=== PATIENT | female | born 1940 | race Caucasian/White ===

== ENCOUNTER → 2019-09-04 | Outpatient (CLI) | payer OTHER | LOC: RAD 09:16 | DX: I51.7 Cardiomegaly (principal) ==

== ENCOUNTER → 2020-02-20 | Outpatient (CLI) | payer OTHER | LOC: LAB 10:10 | PROVIDERS: ATTEND Internal Medicine | DX: Z01.818 Encounter for other preprocedural examination (principal); Z11.59 Encounter for screening for other viral diseases ==

== ENCOUNTER → 2020-02-21 | Outpatient (CLI) | payer OTHER ==
--- NOTE | 2020-03-21 17:38 | MCT ---
[facility] [place] [address] METHACHOLINE CHALLENGE TEST Name: JAVY GARNER Room #: REG REY Jarvis#: [id number] Admission: 02/21/20 Attend Phys: John Morales MD Discharge: Date of : 44 Report #: [id number] THIS REPORT FOR: //name// COPIES FOR: AGE: 79 SEX/RACE: F/C Height: 59 in Exam Date: 02/21/20 Weight: 160 lbs BTPS: X >> PRE BRONCHODILATOR: PREDICTED BEST %PRED FORCED VITAL CAPACITY (FRC) 2.09 L LPM % FORCED EXP VOL/SEC (FEV1) 1.39 L FEV/FVC % MAX MID-EXP FLOW (FEF 25-75) 1.78 L/SEC L/SEC % PEAK EXP FLOW RATE (FEF MAX) 4.68 L/MIN L/MIN MED-VC RATIO (FEF 50/FEF 50) .09 Baseline: Phenol Saline Level 1: 0.025 mg/ml BEST %PRED %CHANGE BEST %PRED %CHANGE FVC 2.06 L 99 % % FVC 1.97 L 95 % -4 % FEV1 1.42 L 102 % % FEV1 1.28 L 92 % -9 % Level 2: 0.25 mg/ml Level 3: 2.5 mg/ml BEST %PRED %CHANGE BEST %PRED %CHANGE FVC 1.88 L 90 % -8 % FVC 1.86 L 89 % -9 % FEV1 1.22 L 87 % 14 % FEV1 1.16 L 83 % -18 % . Level 4: 10 mg/ml Level 5: 25 mg/ml BEST %PRED %CHANGE BEST %PRED %CHANGE FVC 1.68 L 80 % -19 % FVC L % % FEV1 1.02 L 73 % -28 % FEV1 L % % Post Bronchodilator: 1st Treatment Post Bronchodilator: 2nd Treatment BEST %PRED %CHANGE BEST %PRED %CHANGE FVC 1.95 L 93 % -5 % FVC L % % FEV1 1.30 L 93 % -9 % FEV1 L % % Post Bronchodilator: 3rd Treatment BEST %PRED %CHANGE [facility] [address] [place] [address] METHACHOLINE CHALLENGE TEST Name: JAVY GARNER Room #: REG [facility].#: [id number] Admission: 02/21/20 Attend Phys: John Morales MD Discharge: Date of : 44 Report #: [id number] FVC L % % FEV1 L % % >> INTERPRETATION: CC: Diana Morales DATE OF SERVICE: 02/21/2020 METHACHOLINE CHALLENGE TEST SUMMARY: Routine measurements for the bronchodilator challenge were administered. Baseline FVC is 2.06 liters, FEV1 baseline 1.42 liters. With increasing doses of methacholine, there was a significant decline in her FEV1 and FVC. FVC decreased to 1.68 liters (19% change). FEV1 decreased to 1.02 liters (28% change). There was a significant response to bronchodilator therapy with a significant response and return to proximal normal therapy. IMPRESSION: Positive methacholine challenge test. <ELECTRONICALLY SIGNED> By: Kyler Barba MD 03/21/20 1738 Kyler Barba MD /nt
== END ==
LOC: PUL 10:40
PROVIDERS: ATTEND Internal Medicine
DX: R06.02 Shortness of breath (principal); Z88.8 Allergy status to other drugs, medicaments and biological substances

== ENCOUNTER → 2020-03-12 | Outpatient (CLI) | payer OTHER | LOC: CAT 09:18 | PROVIDERS: ATTEND Internal Medicine | DX: J84.10 Pulmonary fibrosis, unspecified (principal); I25.10 Atherosclerotic heart disease of native coronary artery without angina pectoris; J98.4 Other disorders of lung; R91.1 Solitary pulmonary nodule; E04.9 Nontoxic goiter, unspecified; M25.78 Osteophyte, vertebrae; Z95.4 Presence of other heart-valve replacement; Z90.49 Acquired absence of other specified parts of digestive tract; Z87.81 Personal history of (healed) traumatic fracture ==

== ENCOUNTER → 2020-04-02 | Outpatient (CLI) | payer OTHER | LOC: ULTRA 14:42 | PROVIDERS: ATTEND Internal Medicine | DX: E04.2 Nontoxic multinodular goiter (principal) ==

== ENCOUNTER → 2020-04-10 | Outpatient (CLI) | payer OTHER | END | disposition home or self-care (01) | LOC: ULTRA 09:09 | PROVIDERS: ATTEND Radiology Diagnostic Radiology | DX: E04.1 Nontoxic single thyroid nodule (principal) ==

== ENCOUNTER → 2020-06-29 | Outpatient (CLI) | payer OTHER | LOC: RAD 13:30 | PROVIDERS: ATTEND Internal Medicine | DX: J43.9 Emphysema, unspecified (principal); M47.9 Spondylosis, unspecified; R05 Cough ==

== ENCOUNTER 2021-01-26 08:48 | Inpatient (IN) | payer OTHER ==
[~2021-01-26] VITALS: Ht 144.8 cm; Wt 76.7 kg
[2021-01-26 08:50] VITALS: BP 193/74
[2021-01-26 09:18] LABS: ABSOLUTE NEUTROPHILS 14.1 thou/uL (1.4-8.2); BASOPHILS 0.3 % (0.0-2.0); HEMATOCRIT 44.3 % (37.0-47.0); HEMOGLOBIN 15.1 gm/dL (12.0-15.0); LYMPHOCYTES 5.1 % (24.0-44.0); MCH 32.6 pg (26.0-34.0); MCHC 34.1 g/dL (28.0-37.0); MCV 95.5 fL (80.0-100.0); MONOCYTES 4.5 % (1.0-8.0); PLATELET COUNT 167 thou/uL (150-400); POLYS 90.1 % (36.0-66.0); RBC 4.64 mil/uL (4.20-5.00); RDW 13.2 % (10.5-14.5); WBC 15.7 thou/uL (4.0-11.0)
[2021-01-26 09:28] LABS: CALCIUM 8.7 mg/dL (8.5-10.1); CREATININE 1.3 mg/dL (0.6-1.0); POTASSIUM 3.7 mmol/L (3.5-5.1)
[2021-01-26 09:34] LABS: ALBUMIN 3.5 g/dL (3.4-5.0); TOTAL BILIRUBIN 0.9 mg/dL (0.2-1.0); TOTAL PROTEIN 7.7 g/dL (6.4-8.2)
[2021-01-26 15:36] VITALS: BP 145/53
[2021-01-26 15:52] VITALS: BP 151/59
[2021-01-26 16:05] VITALS: BP 161/66
[2021-01-26] MEDS ORDERED: EZETIMIBE10 MG PO (16:14)
[2021-01-26] MEDS ORDERED: METOPROLOL SUCC50 MG PO (16:14)
[2021-01-26] MEDS ORDERED: METFORMIN HCL500 M1 PO (16:15)
[2021-01-26] MEDS ORDERED: FUROSEMIDE 40 M40 M1 PO (16:16)
[2021-01-26] MEDS ORDERED: VERAPAMIL ER240 M1 PO (16:16)
[2021-01-26] MEDS ORDERED: KLOR-CON M2020 MEQ PO (16:17)
[2021-01-26] MEDS ORDERED: CLINDAMYCIN HC300 MG PO (16:19)
[2021-01-26] MEDS ORDERED: FISH OIL 1,0001 EAC9 PO (16:23)
[2021-01-26] MEDS ORDERED: VITAMIN E1000 UNIT PO (16:24)
[2021-01-26] MEDS ORDERED: CITRACAL-D3 MA1 EACH PO (16:25)
[2021-01-26] MEDS ORDERED: ASA81BEC PO (16:25)
[2021-01-26] MEDS ORDERED: OMEPRAZOLE 20 M20 M1 PO (16:26)
[2021-01-26] MEDS ORDERED: BREO ELLIPTA 11 EACH INH ×2 (16:27→16:28)
[2021-01-26] MEDS ORDERED: VENTOLIN HFA INH8 GM INH (16:29)
[2021-01-26] MEDS ORDERED: TRELEGY ELLIPT1 EAC1 INH (16:33)
[2021-01-26 19:24] VITALS: BP 167/81
[2021-01-27 04:37] LABS: ABSOLUTE NEUTROPHILS 12.6 thou/uL (1.4-8.2); BASOPHILS 0.2 % (0.0-2.0); EOSINOPHILS 0.3 % (0.0-3.0); HEMATOCRIT 36.3 % (37.0-47.0); MCH 31.9 pg (26.0-34.0); MCV 96.6 fL (80.0-100.0); MONOCYTES 8.1 % (1.0-8.0); PLATELET COUNT 121 thou/uL (150-400); POLYS 83.4 % (36.0-66.0); RBC 3.76 mil/uL (4.20-5.00); RDW 13.5 % (10.5-14.5); WBC 15.1 thou/uL (4.0-11.0)
[2021-01-27 04:38] VITALS: BP 146/67
[2021-01-27 04:43] LABS: ALBUMIN 2.2 g/dL (3.4-5.0); CALCIUM 7.2 mg/dL (8.5-10.1); CREATININE 0.9 mg/dL (0.6-1.0); MAGNESIUM 1.9 mg/dL (1.8-2.4); POTASSIUM 3.3 mmol/L (3.5-5.1); TOTAL BILIRUBIN 0.7 mg/dL (0.2-1.0); TOTAL PROTEIN 5.4 g/dL (6.4-8.2)
[2021-01-27 07:36] VITALS: BP 144/60
[2021-01-27 11:22] VITALS: BP 123/45
--- NOTE | 2021-01-27 14:21 | NUR ---
PT DAUGHTER WILL BRING UP HOME INHALATION MEDICATION THIS EVENING.
--- NOTE | 2021-01-27 15:06 | NUR ---
PT DAUGHTER LEFT FOR AFTERNOON, THIS RN ENCOURAGED PT TO CALL FOR ASSIST NEEDED FOR REST ROOM, REPOSITIONING, NEEDS. PT VERBALIZED UNDERSTANDING.
[2021-01-27 15:15] VITALS: BP 144/62
--- NOTE | 2021-01-27 15:49 | NUR ---
Case reveiwed and discussed with the care team. Cm role introduced to the pt and son at bedside. The pt is a&ox4 and lives indep with her spouse. She does not use any dme and drives. Her pcp is Dr. Diana Corado and she has active ins on file for f/u care. The pt is being treated for colitis. No dc planning needs are indicated at this time. Will remain available should dc needs arise.
[2021-01-27] MEDS ORDERED: OTHER PO (16:35)
[2021-01-27 19:28] VITALS: BP 168/84
[2021-01-28 07:51] LABS: CALCIUM 7.2 mg/dL (8.5-10.1); CREATININE 0.8 mg/dL (0.6-1.0); MAGNESIUM 1.9 mg/dL (1.8-2.4); POTASSIUM 3.1 mmol/L (3.5-5.1)
[2021-01-28 07:52] LABS: HEMATOCRIT 32.9 % (37.0-47.0); HEMOGLOBIN 11.2 gm/dL (12.0-15.0); MCH 32.6 pg (26.0-34.0); RBC 3.42 mil/uL (4.20-5.00); RDW 13.3 % (10.5-14.5); WBC 13.5 thou/uL (4.0-11.0)
[2021-01-28 11:04] VITALS: BP 128/65
[2021-01-28 13:36] LABS: URINE BILIRUBIN NEGATIVE (Negative); URINE BLOOD NEGATIVE (Negative); URINE CLARITY CLEAR; URINE COLOR YELLOW; URINE GLUCOSE-RANDOM* 1+ (Negative); URINE KETONES NEGATIVE (Negative); URINE LEUKOCYTES-REFLEX NEGATIVE (Negative); URINE NITRITE-REFLEX NEGATIVE (Negative); URINE PROTEIN (DIPSTICK) NEGATIVE (Negative); URINE SPECIFIC GRAVITY <= 1.005 (1.005-1.035); URINE UROBILINOGEN 0.2 E.U./dl (0.2-1.0)
[2021-01-28 15:10] VITALS: BP 151/70
--- NOTE | 2021-01-28 16:08 | NUR ---
SW reviewed chart and spoke with nursing and attending physician. Pt is on 1L of O2 and on IV abx. Pt being tested for c.diff. Plan is for pt to discharge home when medically stable. KASSANDRA is following to assist as needed with discharge planning.
--- NOTE | 2021-01-28 16:37 | NUR ---
RN ASSUMED PT'S CARE AT 0700AM, PT IS A&OX4, PT IS ON O2 1L/MIN/NC, PT'S VS ARE STABLE, PT IS CONTINUING IV ABX, RN HAS REPORTED TO HOSPITAL DR AND GI DR ABOUT PT STILL HAS SMALL BLOOD IN STOOL, PT GETS UP TO BATH ROOM BY HERSELF, PT DENIES PAIN AND SOB BY THIS TIME.
[2021-01-28 19:51] VITALS: BP 134/61
--- NOTE | 2021-01-29 03:29 | NUR ---
Patient making slow progress towards outcome goals. Vital signs and rhythm stable. Up adlib without difficulty. No bowel movement. Noactive signs of bleeding. Denies pain.
[2021-01-29 04:02] VITALS: BP 173/77
[2021-01-29 06:18] LABS: HEMATOCRIT 33.3 % (37.0-47.0); HEMOGLOBIN 11.3 gm/dL (12.0-15.0); MCH 32.3 pg (26.0-34.0); MCHC 34.1 g/dL (28.0-37.0); MCV 94.9 fL (80.0-100.0); RBC 3.51 mil/uL (4.20-5.00); RDW 13.4 % (10.5-14.5); WBC 10.3 thou/uL (4.0-11.0)
[2021-01-29 06:34] LABS: CALCIUM 7.5 mg/dL (8.5-10.1); CREATININE 0.7 mg/dL (0.6-1.0); MAGNESIUM 1.8 mg/dL (1.8-2.4); POTASSIUM 3.6 mmol/L (3.5-5.1)
[2021-01-29 07:18] VITALS: BP 170/80
--- NOTE | 2021-01-29 09:29 | NUR ---
ORDERS RECEIVED AND CHART REVIEWED. PATIENT AND FAMILY MEMBERS IN ROOM, HAS BEEN UP AD ELIO AND REPORTS SELF CARE ABILITIES ARE INDEPENDENT. DECLINES NEED FOR FORMAL EVAL, HAS SHOWER CHAIR/GB AND WALK IN SHOWER AT HOME. STAIRS TO BASEMENT FOR LAUNDRY AND FAMILY MEMBER REPORTS ASSIST NEEDED. NO ACUTE NEEDS APPARENT, WILL SIGN OFF. PLEASE RECONSULT IF FUNCTIONAL STATUS CHANGES.
[2021-01-29 11:05] VITALS: BP 139/73
--- NOTE | 2021-01-29 11:56 | NUR ---
ORDERS FOR EVAL AND TREAT. Pt IS UP AD ELIO. SPOKE WITH Pt WHO STATES SHE IS HAVING NO DIFFICULTY WITH MOBILITY AND DOES NOT FEEL WEAK OR OFF-BALANCE. Pt IS GETTING UP ON HER OWN IN THE ROOM AND DECLINING A FORMAL P.T. EVAL BUT APPEARS SAFE FOR HOME WHEN MEDICALLY CLEAR
[2021-01-29 12:57] LABS: ABSOLUTE RETIC COUNT 0.0721 10^6/uL; OBSERVED RETIC COUNT 1.93 % (0.6-2.6)
[2021-01-29 13:11] LABS: % SATURATION 13 % (20-39); IRON 26 ug/dL (50-170); TIBC 204 ug/dL (250-450)
--- NOTE | 2021-01-29 16:17 | NUR ---
SW reviewed chart and spoke with nursing and attending physician. Pt is on 1L of O2 and IV abx. No weekend discharge planned. Therapy ordered to evaluate pt for discharge needs. SW is following to assist as needed with discharge planning.
[2021-01-29 16:22] VITALS: BP 147/73
--- NOTE | 2021-01-29 18:28 | NUR ---
RN ASSUMED PT'S CARE AT 0700AM, PT IS A&OX4, PT IS CONTINUING IV ABX , PT'S VS ARE STABLE, PT DENIES PAIN AND N/V AT DAY SHIFT.PT CAN GETS UP TO BATH ROOM AND CHAIR BY HERSELF.
[2021-01-29 19:56] VITALS: BP 124/59
[2021-01-30] VITALS (7 sets, daily range): BP systolic 133–175; BP diastolic 61–88
--- NOTE | 2021-01-30 03:40 | NUR ---
PROGRESS PT A/O X4, LUNGS CLEAR. ABDOMEN SOFT AND NON TENDER TO PALPATION. BS ACTIVE PT REPORTS STOOL EARLIER IN DAY. ACCUCHECKS CONTINUE ACHS. IV SALINE LOCKED, INTERMITTENT ANTIBIOTICS ADMINISTERED ORDERED. PT TOLERATING SOFT FIBER RESTRICTED DIET AND PO FLUIDS WITHOUT NAUSEA OR PAIN. VOIDING QS. UP AD ELIO GAIT STEADY. DENIES PAIN PT REPORTED SHE FEELS A LOT BETTER AND WISHES TO DISCHARGE HOME THIS AM.
[2021-01-30 04:59] LABS: BASOPHILS 0.2 % (0.0-2.0); EOSINOPHILS 1.5 % (0.0-3.0); HEMATOCRIT 35.9 % (37.0-47.0); HEMOGLOBIN 12.2 gm/dL (12.0-15.0); LYMPHOCYTES 12.8 % (24.0-44.0); MCH 32.5 pg (26.0-34.0); MCV 95.6 fL (80.0-100.0); MONOCYTES 11.2 % (1.0-8.0); PLATELET COUNT 150 thou/uL (150-400); POLYS 74.3 % (36.0-66.0); RBC 3.76 mil/uL (4.20-5.00); RDW 13.4 % (10.5-14.5); WBC 8.1 thou/uL (4.0-11.0)
[2021-01-30 05:26] LABS: ALBUMIN 2.3 g/dL (3.4-5.0); CALCIUM 7.8 mg/dL (8.5-10.1); CREATININE 0.8 mg/dL (0.6-1.0); MAGNESIUM 1.9 mg/dL (1.8-2.4); PHOSPHORUS 2.2 mg/dL (2.6-4.7); POTASSIUM 3.9 mmol/L (3.5-5.1); TOTAL BILIRUBIN 0.5 mg/dL (0.2-1.0)
--- NOTE | 2021-01-30 12:43 | NUR ---
ASSUMED PT CARE AT SHIFT CHANGE, PT STATES SHE IS READY TO DISCHARGE, SHE STATED HER DOCTOR TOLD HER YESTERDAY THAT SHE WOULD GO HOME TODAY. NO DISCHARGE ORDERS IN SYSTEM AT THIS TIME. PT HAS SPOUSE IN ROOM WITH HER, DAUGHTER WILL BE TRANSPORTATION HOME. REPLACED IV D/T INFILTRATION. PT TOLERATED WELL. NEW IV IN R AC.
[2021-01-30] MEDS ORDERED: CIPRO500 M1 PO ×2 (15:48→16:04)
[2021-01-30] MEDS ORDERED: METRONIDAZOLE500 M4 PO (15:48)
[2021-01-30] MEDS ORDERED: VITAMIN B-12250 MC2 PO (15:51)
== END 2021-01-30 16:40 | disposition home or self-care (01) | DRG 871 ==
LOC: ER 08:48 → EROBS 10:40 → 3W 10:40
PROVIDERS: Emergency Medicine; Internal Medicine; Nurse Practitioner; Nurse Practitioner Family; ADMIT Internal Medicine; ATTEND Internal Medicine
DX: A41.9 Sepsis, unspecified organism (principal); K57.31 Diverticulosis of large intestine without perforation or abscess with bleeding; N17.9 Acute kidney failure, unspecified; E46 Unspecified protein-calorie malnutrition; A09 Infectious gastroenteritis and colitis, unspecified; I10 Essential (primary) hypertension; E78.5 Hyperlipidemia, unspecified; I25.10 Atherosclerotic heart disease of native coronary artery without angina pectoris; J45.909 Unspecified asthma, uncomplicated; E11.65 Type 2 diabetes mellitus with hyperglycemia; K44.9 Diaphragmatic hernia without obstruction or gangrene; K76.0 Fatty (change of) liver, not elsewhere classified; E66.01 Morbid (severe) obesity due to excess calories; R53.81 Other malaise; K59.00 Constipation, unspecified; M81.0 Age-related osteoporosis without current pathological fracture; K21.9 Gastro-esophageal reflux disease without esophagitis; D50.0 Iron deficiency anemia secondary to blood loss (chronic); E83.51 Hypocalcemia; Z88.0 Allergy status to penicillin; Z95.2 Presence of prosthetic heart valve; Z88.1 Allergy status to other antibiotic agents; Z88.8 Allergy status to other drugs, medicaments and biological substances; Z90.710 Acquired absence of both cervix and uterus; Z98.42 Cataract extraction status, left eye; Z98.41 Cataract extraction status, right eye; Z68.36 Body mass index [BMI] 36.0-36.9, adult
CPT/HCPCS: 10879

== ENCOUNTER → 2021-06-02 | Outpatient (CLI) | payer OTHER ==
[~2021-06-02] MED LIST: ASA81BEC PO; BREO ELLIPTA 11 EACH INH; CIPRO500 M1 PO; CITRACAL-D3 MA1 EACH PO; CLINDAMYCIN HC300 MG PO; EZETIMIBE10 MG PO; FISH OIL 1,0001 EAC9 PO; FUROSEMIDE 40 M40 M1 PO; KLOR-CON M2020 MEQ PO; METFORMIN HCL500 M1 PO; METOPROLOL SUCC50 MG PO; METRONIDAZOLE500 M4 PO; OMEPRAZOLE 20 M20 M1 PO; OTHER PO; TRELEGY ELLIPT1 EAC1 INH; VENTOLIN HFA INH8 GM INH; VERAPAMIL ER240 M1 PO; VITAMIN B-12250 MC2 PO; VITAMIN E1000 UNIT PO
== END ==
LOC: RAD 13:30
PROVIDERS: ATTEND Internal Medicine
DX: E04.2 Nontoxic multinodular goiter (principal); R93.89 Abnormal findings on diagnostic imaging of other specified body structures